=== PATIENT | male | born 1960 | race Caucasian/White ===

== ENCOUNTER 2022-06-13 16:27 | Outpatient (CLI) | payer OTHER, SELFPAY ==
--- NOTE | ~2022-06-13 | MR_ITS ---
EXAMINATION: MR brain/brain stem wo con DATE: 06/13/2022 17:15 INDICATION: One year of short-term memory loss. TECHNIQUE: Magnetic resonance imaging (MRI) of the brain and brainstem was performed without intraven ous contrast. Sequences included sagittal and axial T1-weighted SE, axial diffusion-weighted FS SE, a xial T2*-weighted GRE, axial 3D SWAN, axial T2-weighted FLAIR, and axial T2-weighted FSE. Apparent di ffusion coefficient (ADC) maps were created. COMPARISON: None. FINDINGS: There are no areas of restricted diffusion to suggest acute infarction. No intracranial hemorrhage or abnormal intracranial mass lesion. There are scattered areas of nonspecific increased T2-weighted si gnal intensity in the cerebral white matter, predominantly involving the deep and periventricular whi te matter. There are no intraparenchymal signal abnormalities seen on the other pulse sequences. The ventricles are symmetric and normal in size. There are no abnormal extra-axial fluid collections. Rob w voids are seen in the cerebral arteries on the T2-weighted sequences consistent with their expected patency. Couple mucous retention cyst in the left maxillary sinus. Moderate more diffuse mucosal thi ckening the right maxillary sinus with some posterior layering fluid/mucus. Additional mucous retenti on cyst in the right frontal sinus. Visualized orbits and soft tissues are unremarkable. IMPRESSION: 1. Normal brain. No acute intracranial process. 2. Sinus disease. Reviewed, dictated and finalized at location A.
== END 2022-06-13 16:28 | disposition home or self-care (01) ==
PROVIDERS: PCP Family Medicine Adolescent Medicine; Visit Provider Physician Assistant
DX: R41.3 Other amnesia (principal)
CPT/HCPCS: 70551